=== PATIENT | female | born 1955 | race Caucasian/White ===

== ENCOUNTER 2021-08-31 18:50 | Inpatient (IN) | payer MEDICARE, OTHER ==
[~2021-08-31] VITALS: Ht 170.2 cm; Wt 98.0 kg
[2021-08-31] MEDS ORDERED: LISINOPRIL20 MG PO (19:47)
[2021-08-31] MEDS ORDERED: SYNTHROID100 MCG PO (19:47)
[2021-08-31] MEDS ORDERED: XANAX1 MG PO (19:48)
[2021-09-01 05:19] LABS: HEMOGLOBIN 14.8 gm/dl (12.3-15.3); RED BLOOD COUNT 4.6 M/UL (4.00-5.10); WHITE BLOOD COUNT 7.5 K/UL (4.5-11.0)
[2021-09-01 05:23] LABS: BUN/CREATININE RATIO 13 (0-10)
[2021-09-01] MEDS ORDERED: ALPRAZOLAM1 MG PO (10:26)
[2021-09-01] MEDS ORDERED: DIFLUCAN150 MG PO (10:27)
[2021-09-01] MEDS ORDERED: CLOTRIMAZOLE-BE30 ML TP (10:27)
[2021-09-01] MEDS ORDERED: CEFDINIR300 MG PO (10:28)
[2021-09-01] MEDS ORDERED: NYSTOP60 GM TOP (10:28)
[2021-09-01] MEDS ORDERED: CYMBALTA20 MG PO (10:28)
[2021-09-01] MEDS ORDERED: CETIRIZINE HCL10 MG PO (10:29)
[2021-09-01] MEDS ORDERED: CYANOCOBAL1000 MCG/1 INJ (10:29)
[2021-09-01] MEDS ORDERED: VITAMIN D21250 MCG PO (10:30)
[2021-09-01] MEDS ORDERED: FISH OIL 1,0001 EAC4 PO (10:30)
[2021-09-02 01:44] LABS: HEMOGLOBIN 13.7 gm/dl (12.3-15.3); RED BLOOD COUNT 4.19 M/UL (4.00-5.10); WHITE BLOOD COUNT 8.2 K/UL (4.5-11.0)
[2021-09-02 02:07] LABS: BUN/CREATININE RATIO 11 (0-10)
[2021-09-02] MEDS ORDERED: NITROGLYCERIN0.4 MG SL (12:15)
[2021-09-02] MEDS ORDERED: LOPRESSOR 25 MG25 MG PO (12:15)
[2021-09-02] MEDS ORDERED: ASPIRIN EC81 MG PO (12:15)
[2021-09-02] MEDS ORDERED: ATORVASTATIN CA20 MG PO (12:15)
[2021-09-02] MEDS ORDERED: BRILINTA 90 MG90 MG PO (12:15)
[2021-09-02] MEDS ORDERED: LISINOPRIL5 MG PO (16:46)
== END 2021-09-02 17:05 | disposition home or self-care (01) | DRG 247 ==
LOC: CCU 18:53 → PROG CARE 09-01 10:05
PROVIDERS: Internal Medicine Cardiovascular Disease; ADMIT Internal Medicine
PROC: 027034Z Dilation of Coronary Artery, One Artery with Drug-eluting Intraluminal Device, Percutaneous Approach (ICD-10-PCS; principal; 2021-09-01)
PROC: 4A023N7 Measurement of Cardiac Sampling and Pressure, Left Heart, Percutaneous Approach (ICD-10-PCS; 2021-09-01)
PROC: B2111ZZ Fluoroscopy of Multiple Coronary Arteries using Low Osmolar Contrast (ICD-10-PCS; 2021-09-01)
PROC: B24BZZZ Ultrasonography of Heart with Aorta (ICD-10-PCS; 2021-09-01)
DX: I21.4 Non-ST elevation (NSTEMI) myocardial infarction (principal); Z20.822 Contact with and (suspected) exposure to COVID-19; E03.9 Hypothyroidism, unspecified; F17.210 Nicotine dependence, cigarettes, uncomplicated; I10 Essential (primary) hypertension; M06.9 Rheumatoid arthritis, unspecified; F41.9 Anxiety disorder, unspecified; I08.1 Rheumatic disorders of both mitral and tricuspid valves; E66.9 Obesity, unspecified; G89.4 Chronic pain syndrome; M54.50 Low back pain, unspecified; M51.36 Other intervertebral disc degeneration, lumbar region; B37.9 Candidiasis, unspecified; Z82.49 Family history of ischemic heart disease and other diseases of the circulatory system; Z82.61 Family history of arthritis; Z82.5 Family history of asthma and other chronic lower respiratory diseases; Z88.8 Allergy status to other drugs, medicaments and biological substances; Z90.49 Acquired absence of other specified parts of digestive tract; Z98.891 History of uterine scar from previous surgery; Z68.33 Body mass index [BMI] 33.0-33.9, adult
CPT/HCPCS: ECHO; 36415; 71045; 80048; 80061; 82550; 82553; 83036; 84484; 85025; 85347; 85730; 93005; 93306; 96374; 99152; 99153; C1725; C1769; C1874; C1887; C1894; C9600; G0378; G0379; J1644; J2250; J2270; J3010; J3246; J7040; Q9967